=== PATIENT | female | born 1955 | race African-American/Black ===

== ENCOUNTER 2017-03-01 00:52 | Emergency (ER) | payer MEDICAID ==
[~2017-03-01] VITALS: Ht 144.8 cm; Wt 58.0 kg
[2017-03-01] MEDS ORDERED: DIPHENHYDRAMINE 50MG/ML VIAL IV ONE (01:30)
[2017-03-01] MEDS ORDERED: FAMOTIDINE 20MG/2ML VIAL IV ONE (01:30)
[2017-03-01] MEDS ORDERED: DEXAMETHASONE 10 MG/ML VIAL IV ONE (01:30)
[2017-03-01 01:47] LABS: BASOPHILS % 0.1 % (0.0-2.0); HEMATOCRIT. 41.1 % (36.0-48.0); HEMOGLOBIN. 13.3 g/dL (12.0-16.0); LYMPHOCYTES % 23.5 % (20.0-50.0); MEAN CORPUSCULAR HEMOGLOBIN 28.3 pg (28.0-32.0); MEAN CORPUSCULAR VOLUME 87.7 fL (81.0-99.0); MEAN PLATELET VOLUME 8.5 fl (7.4-10.4); MONOCYTES % 7.6 % (2.0-8.0); NEUTROPHILS % 68.8 % (40.0-76.0); PLATELET 186 x1000/uL (130-400); RED BLOOD CELL COUNT 4.68 mill/uL (4.2-5.4); RED CELL DISTRIBUTION WIDTH 13.1 % (11.6-14.6)
[2017-03-01 01:52] LABS: CHLORIDE 109 mEq/L (98-107)
[2017-03-01 02:01] LABS: CARBON DIOXIDE 29 mEq/L (21-32)
[2017-03-01 05:24] VITALS: BP 121/81
== END 2017-03-01 05:27 | disposition home or self-care (01) ==
LOC: ER 00:52
DX: R60.0 Localized edema (principal); R21 Rash and other nonspecific skin eruption; L29.9 Pruritus, unspecified; R20.8 Other disturbances of skin sensation; T50.905A Adverse effect of unspecified drugs, medicaments and biological substances, initial encounter; J45.909 Unspecified asthma, uncomplicated; M19.90 Unspecified osteoarthritis, unspecified site; Z88.6 Allergy status to analgesic agent; Y92.89 Other specified places as the place of occurrence of the external cause
CPT/HCPCS: 36415; 80053; 85025; 96374; 96375; 99284; J1100; J1200; J3490; Z7610